=== PATIENT | female | born 1995 | race Caucasian/White ===

== ENCOUNTER → 2016-11-15 | Outpatient (CLI) | payer BC ==
--- NOTE | 2016-11-15 08:39 | DIAGNOSTIC IMAGING REPORT ---
RIGHT WRIST MIN 3 VIEWS ROUTINE CLINICAL HISTORY: 21 years-old Female presenting with RIGHT WRIST PAIN Right. TECHNIQUE: Frontal, oblique, and lateral views the right wrist were obtained. COMPARISON: None. FINDINGS: Radiocarpal and intercarpal articulations intact. No dislocation at the carpal metacarpal articulations. No significant degenerative change. No acute fracture or subluxation. Regional soft tissues within normal limits. Distal radial ulnar joint intact. IMPRESSION: No acute osseous injury of the right wrist. Electronically signed by: Deo Lees M.D. 11/15/2016 8:37 AM Dictated Date/Time: 11/15/2016 8:36 AM
== END | disposition home or self-care (01) ==
LOC: C.RDSM 12:49
PROVIDERS: ATTEND Family Medicine
DX: M25.531 Pain in right wrist (principal)